=== PATIENT | male | born 1980 | race Caucasian/White ===

== ENCOUNTER 2022-11-08 18:10 | Emergency (ER) | payer OTHER, SELFPAY ==
[2022-11-08 18:18] VITALS: BP 140/88; PULSE 102; RESP 16; TEMP 37.6; O2SAT 98
--- NOTE | 2022-11-08 19:00 | ED.GENADULT ---
HPI - General Adult General Chief complaint: Upper Respiratory Infection Stated complaint: Sore Throat Source: patient and family Mode of arrival: ambulatory Limitations: no limitations History of Present Illness HPI narrative: Patient presents for evaluation of sore throat. He had some sinus congestion last week. His sore throat started three days ago. No fever, chills, nausea, vomiting. He reports a cough but denies SOB. Denies difficulty breathing but swallowing induces a considerable amount of pain. He has not been taking any medication for his symptoms. He smokes 1 ppd. His sister brought him in for further evaluation. Related Data Allergies Allergy/AdvReac Type Severity Reaction Status Date / Time No Known Allergies Allergy Unverified 12/24/18 14:27 Review of Systems Review of Systems: CONSTITUTIONAL: Denies fever, chills, or sweats. EYES: Denies visual changes, redness, or discharge. ENT: Reports sore throat and sinus congestion. Denies rhinorrhea or otalgia. CARDIOVASCULAR: Denies chest pain, palpitations, or edema. RESPIRATORY: Denies cough or dyspnea. GASTROINTESTINAL: Denies abdominal pain, nausea, vomiting, or diarrhea. GENITOURINARY: Denies dysuria or hematuria. SKIN: Denies rash or itching. MUSCULOSKELETAL: Denies back pain, joint pain, or myalgia. NEUROLOGIC: Denies headache, numbness, dizziness, or weakness. PSYCHIATRIC: Denies anxiety or depression. PMFSH Past Medical History Medical History No pertinent past medical history Surgical History Surgical History No pertinent past surgical history Family History Family History Mother Family history non-contributory Social History Social History Smoking packs per day: 1 Smoking cigarettes per day: 20.0 Smoking status: Current every day smoker Tobacco type: cigarettes Substance use: never Living arrangements: with roommate(s) Gender identity (if verbalized by the patient): Male Spiritual care concerns: No Exam Narrative: GENERAL: Well-appearing, well-nourished, and in no acute distress. HEAD: Normocephalic, atraumatic. EYES: PERRLA and EOMI. ENT: Nares clear, no rhinorrhea or epistaxis. Mucous membranes moist. Bilateral tonsillar enlargement with erythema but no significant exudate. Uvula is midline. Bilateral TMs pearly nur nonbulging NECK: Supple. No adenopathy or masses. No carotid bruits or JVD CHEST: Clear to auscultation. No respiratory distress. No wheezes rales or rhonchi HEART: Regular rate and rhythm. No murmur heard. Normal peripheral pulses. ABDOMEN: Soft, nontender, nondistended, normal active bowel sounds. EXTREMITIES: Normal range of motion. No edema. SKIN: Warm, dry, no rash. NEURO: No focal deficits. Alert and oriented x3. PSYCH: Normal mood and affect. Course Course Emergency Course: This is a 41-year-old male who presented for evaluation of sore throat. Rapid strep positive. He had significant bilateral tonsillar swelling so was given Decadron and Toradol. He was also given Rocephin. His symptoms markedly improved. He has no evidence of peritonsillar abscess. Follow-up with primary provider. He felt comfortable going home. Airway patent and patient appears well. Severity of symptoms diminished with medication. Go to the emergency department for difficulty breathing or swelling. Patient in agreement plan of care. Level of Care: Express Care Visit Vital Signs Vital signs: Vital Signs Temperature 37.6 C 11/08/22 18:18 Pulse Rate 102 H 11/08/22 18:18 Respiratory Rate 16 11/08/22 18:18 Blood Pressure 140/88 11/08/22 18:18 Pulse Oximetry 98 11/08/22 18:18 Oxygen Delivery Room Air 11/08/22 18:18 Temperature 37.6 C 06
[2022-11-08] MEDS: KETOROLAC (*BKC) 60 MG/2 ML VIAL IM (19:13)
[2022-11-08] MEDS: cefTRIAXone 1 GM VIAL IM (19:15)
== END 2022-11-08 20:10 | disposition home or self-care (01) ==
PROVIDERS: Emergency Provider Nurse Practitioner
DX: J02.0 Streptococcal pharyngitis (principal); F17.210 Nicotine dependence, cigarettes, uncomplicated
CPT/HCPCS: 87880; 96372; 99214; G0463; J0696; J1100; J1885